=== PATIENT | male | born 1990 | race American Indian/Alaskan Native ===

== ENCOUNTER 2019-07-24 19:08 | Emergency (ER) | payer SELFPAY ==
--- NOTE | 2019-07-24 19:58 | Event Note ---
ED Screening Note ED Screening Note: c/o right foot pain that occurred today states a motor fell onto the foot ambulatory with some discomfort no prior injuries no pMhx no allergies to meds This initial assessment/diagnostic orders/clinical plan/treatment(s) is/are subject to change based on patients health status, clinical progression and re- assessment by fellow clinical providers in the ED. Further treatment and workup at subsequent clinical providers discretion. Patient/guardian urged not to elope from the ED as their condition may be serious if not clinically assessed and managed. Initial orders include: XR of the right foot
[2019-07-24] MEDS ORDERED: TYLENOL PO ONE (19:59)
[2019-07-24] MEDS ORDERED: TYLENOL ONE (20:02)
[2019-07-24 20:07] VITALS: BP 120/78
--- NOTE | 2019-07-24 20:27 | XRay Report ---
HISTORY:right foot pain COMPARISON: None TECHNIQUE: 3 views were obtained FINDINGS: Bones: No fracture or dislocation. Joint spaces: Maintained. Soft tissues: No significant abnormality. Additional findings: None. IMPRESSION: 1. No significant abnormality. Signer Name: Krystian Alfred MD Signed: 07/24/2019 8:23 PM Workstation Name: [id number]
== END 2019-07-24 21:00 ==
LOC: ED 19:08
DX: M79.671 Pain in right foot (principal); Z53.21 Procedure and treatment not carried out due to patient leaving prior to being seen by health care provider